=== PATIENT | male | born 1965 | race Caucasian/White ===

== ENCOUNTER 2020-05-13 03:40 | Emergency (ER) | payer OTHER, SELFPAY ==
--- NOTE | ~2020-05-13 | CT_ITS ---
EXAMINATION: CT abdomen pelvis wo con DATE: 05/13/2020 04:28 INDICATION: Right flank pain TECHNIQUE: Computed tomography (CT) of the abdomen and pelvis was performed without intravenous contr ast. Automated exposure control and iterative reconstruction technique were employed. Exam dose: 921 .68 mGy-cm total exam DLP. COMPARISON: 12/30/2010 CT renal scan FINDINGS: The lung bases are clear. Normal heart size. No pericardial or pleural effusion. The liver, gallbladder, bile ducts, spleen, pancreas, pancreatic duct and adrenal glands are unremark able. Bilateral nonobstructive nephrolithiasis. No left ureteral calculus or left hydroureteronephrosis. 6 mm proximal right ureteral calculus with associated mild 2 moderate right hydroureteronephrosis and perinephric and periureteral stranding. Prostate enlargement. Mild diffuse bladder wall thickening. Bilateral fat-containing inguinal hernias. Normal caliber of the abdominal aorta. Retroaortic left renal vein. No intraperitoneal or retroperito mukesh or pelvic mass lesion or adenopathy or ascites. Normal appendix. No bowel obstruction, bowel wall thickening, pneumatosis or intraperitoneal free air. Severe degenerative disease at L5-S1. Moderately severe degenerative disc disease at L4-5. Limbus vertebra at L2. Diffuse idiopathic skeletal hyperostosis of the thoracic spine. IMPRESSION: 6 mm proximal right ureteral obstructing calculus with mild to moderate right proximal h ydroureteronephrosis Bilateral nonobstructive nephrolithiasis Prostate enlargement Bilateral fat-containing inguinal hernias Degenerative changes of the thoracic and lumbar spine Reviewed, dictated and finalized at [facility]. Reviewed, dictated and finalized at [facility]. IMPRESSION: 6 mm proximal right ureteral obstructing calculus with mild to mod erate right proximal hydroureteronephrosis Bilateral nonobstructive nephrolithiasis Prostate enlargement Bilateral fat-containing inguinal hernias Degenerative changes of the thoracic and lumbar spine
--- NOTE | 2020-05-13 03:43 | ED.ABDPAIN ---
HPI - Abdominal Pain General Chief Complaint: Abdominal Pain Stated Complaint: kidney stone? Time Seen by Provider: 05/13/20 03:43 History of Present Illness HPI narrative: Right flank pain radiating to the RLQ since about 2300 last night. Severe. Associated with nausea. Feels like jaswinder he has passed a kidney stone in the past. He tried drinking water without any change. No fever, chills, vomiting, diarrhea. Related Data Home Medications Medication Instructions Recorded Confirmed No Home Medications 01/31/20 01/31/20 Allergies Allergy/AdvReac Type Severity Reaction Status Date / Time No Known Allergies Allergy Verified 05/13/20 03:48 Review of Systems Review of Systems: All systems reviewed & are unremarkable except as noted in HPI and below Constitutional: Constitutional: Denies chills and Denies fever(s) Cardiovascular: Cardiovascular: Denies chest pain Respiratory: Respiratory: Denies dyspnea Gastrointestinal: Gastrointestinal: Reports abdominal pain, Denies constipation, Denies diarrhea, Reports nausea and Denies vomiting Genitourinary: Genitourinary: Denies hematuria, Denies dysuria and Denies urinary frequency Neurologic: Reports system reviewed and no additional complaints, except as documented [facility] Past Medical History Medical History (Updated 05/13/20 @ 05:29 by Tyshawn Reyes MD) BMI greater than 30 Establishing care with new doctor, encounter for Kidney stone Surgical History Surgical History History of ankle surgery Hx of hernia repair Family History Family History Other Heart disease Hypertension Social History Social History Smoking status: Never smoker Alcohol intake: never Exam Const: General: healthy appearing and alert Orientation/consciousness: patient oriented x3 Other: Mild distress HENMT: Head: normal to inspection Neck: Neck: normal visual inspection Resp: Effort & Inspection: normal respiratory effort Auscultation: clear to auscultation bilaterally Cardio: Rate: regular rate Rhythm: regular rhythm GI: Inspection: non-distended GI Palp: Yes Soft to palpation, No Tenderness to palpation present (GI) and No Guarding due to palpation present (GI) : General: Yes no CVA tenderness Skin: General skin exam: normal color Neuro: General: patient oriented x3, moves all extremities, no focal motor deficits and CN's II-XI intact bilaterally Speech: normal speech Extrem: General: normal to inspection and no edema Course Vital Signs Vital signs: Vital Signs Temperature 36.2 C L 05/13/20 03:44 Pulse Rate 73 05/13/20 03:44 Respiratory Rate 20 05/13/20 03:44 Blood Pressure 149/95 H 05/13/20 03:44 Pulse Oximetry 100 05/13/20 03:44 Temperature 36.2 C L 05/13/20 03:44 Pulse Rate 73 05/13/20 03:44 Respiratory Rate 20 05/13/20 03:44 Blood Pressure 149/95 H 05/13/20 03:44 Pulse Oximetry 100 05/13/20 03:44 MDM - Abdominal Pain MDM Narrative Medical decision making narrative: 6 mm proximal stone on CT. On reevaluation his pain has nearly resolved and he says that he is ceratin that the stone has passed and he is ready for discharge. Differential Diagnosis Differential diagnosis: Likely acute appendicitis, calculus of kidney, constipation, diverticulitis, pancreatitis and small bowel obstruction Medical Records Attestation: I reviewed the patient's medical records. Lab Data Attestation: I reviewed the patient's lab results. Result diagrams: 05/13/20 03:55 05/13/20 03:55 Labs: Lab Results 05/13/20 05/13/20 05/13/20 Range/Units 03:55 03:55 04:50 WBC 8.6 (4.5-10.0) K/mm3 RBC 4.85 (4.6-6.20) M/mm3 Hgb 15.4 (14.0-18.0) g/dL Hct 44.1 (42.0-52.0) % MCV 90.9 (80-100) fl MCH 31.8 (26-34) pg
[2020-05-13 03:44] VITALS: BP 149/95; PULSE 73; RESP 20; TEMP 36.2; O2SAT 100
[2020-05-13] MEDS: SODIUM CHLORIDE 0.9% IV 1,000 ML 999 ML IV CONT ×2 (03:51→04:49)
[2020-05-13] MEDS: MORPHINE SULFATE (*CRX) 4 MG/ML INJ IV PUSH (03:52)
[2020-05-13] MEDS: ONDANSETRON INJ 4 MG/2 ML VIAL IV PUSH (03:52)
[2020-05-13 04:01] LABS: Basophils Percent Auto 0.3 % (0.2-1.2); Eosinophils Absolute Auto 0.1 K/mm3 (0-0.3); Eosinophils Percent Auto 0.9 % (0-4.4); Hematocrit 44.1 % (42.0-52.0); Hemoglobin 15.4 g/dL (14.0-18.0); Immature Granulocyte Absolute 0.03 K/mm3 (0.00-0.031); Immature Granulocyte Percent A 0.3 % (0-0.5); Lymphocytes Absolute Auto 1.67 K/mm3 (0.9-3.2); Lymphocytes Percent Auto 19.4 % (18.3-44.2); Mean Corpuscular HGB Conc 34.9 g/dl (32-36); Mean Corpuscular Hemoglobin 31.8 pg (26-34); Mean Corpuscular Volume 90.9 fl (80-100); Mean Platelet Volume 9.3 fl (7.4-10.4); Monocytes Absolute Auto 0.9 K/mm3 (0.1-0.6); Neutrophils Absolute Auto 5.9 K/mm3 (1.3-6.7); Neutrophils Percent Auto 69.1 % (45.5-73.1); Platelet Count Result 244 k/mm3 (150-375); Red Blood Count 4.85 M/mm3 (4.6-6.20); Red Cell Distribution Width 12.3 % (11.5-14.5); White Blood Count 8.6 K/mm3 (4.5-10.0)
[2020-05-13 04:13] LABS: Alanine Aminotransferase 22 U/L (4-50); Albumin Level 4.5 g/dL (3.5-5.1); Alkaline Phosphatase 63 U/L (38-126); Anion Gap 8 mmol/L (8-16); Aspartate Amino Transferase 30 U/L (17-59); Bilirubin,Total 0.5 mg/dL (0.2-1.3); Blood Urea Nitrogen 22 mg/dL (9-20); Calcium 9.4 mg/dL (8.4-10.2); Carbon Dioxide 28 mmol/L (22-30); Chloride 102 mmol/L (98-107); Estimated CRCL calculation 62 ml/min; Estimated Glomerular Filt Rate 57; Glucose 131 mg/dL (75-110); Lipase 61 U/L (23-300); Potassium 3.7 mmol/L (3.4-5.0); Sodium 138 mmol/L (137-145)
[2020-05-13] MEDS: TAMSULOSIN HCL 0.4 MG CAPSULE PO (04:33)
[2020-05-13] MEDS: KETOROLAC 30 MG/ML VIAL (*BKC) IV PUSH (04:49)
[2020-05-13] MEDS: MORPHINE SULFATE (*CRX) 2 MG/ML INJ IV PUSH (04:49)
[2020-05-13 05:29] LABS: Add Urine Microscopic? YES; Appearance Urine Clear (Clear); Bilirubin Urine Negative (Negative); Blood Urine 1+ (Negative); Color Urine Yellow (Yellow); Glucose Urine UA Negative (Negative); Ketones Urine Negative (Negative); Leukocyte Esterase Ur Negative LEU/UL (Negative); Mucus Urine Rare /lpf; Nitrate Urine Negative (Negative); Protein Urine 1+ mg/dL (Negative); Specific Grav Ur 1.017 (1.001-1.035); Urobilinogen Urine Negative mg/dL (<2.0); WBC Urine 0-3 /hpf
[2020-05-13 05:36] VITALS: BP 121/68; PULSE 80; RESP 16; O2SAT 98
== END 2020-05-13 05:38 | disposition home or self-care (01) ==
PROVIDERS: Emergency Provider Emergency Medicine; PCP Family Medicine
DX: N13.2 Hydronephrosis with renal and ureteral calculous obstruction (principal); Z87.442 Personal history of urinary calculi; N40.0 Benign prostatic hyperplasia without lower urinary tract symptoms; K40.90 Unilateral inguinal hernia, without obstruction or gangrene, not specified as recurrent
CPT/HCPCS: 36415; 74176; 80053; 81001; 83690; 85025; 96361; 96374; 96375; 96376; 99284; A9270; J1885; J2270; J2405; J7030

== ENCOUNTER → 2020-05-24 15:58 | Outpatient (CLI) | payer OTHER, SELFPAY ==
--- NOTE | ~2020-05-24 | CT_ITS ---
EXAMINATION: CT abdomen pelvis wo con DATE: 05/24/2020 16:20 INDICATION: Right ureteral stone. TECHNIQUE: Computed tomography (CT) of the abdomen and pelvis was performed without intravenous contr ast. Automated exposure control and iterative reconstruction technique were employed. The dose-length product was 777.13 mGy-cm. COMPARISON: CT abdomen and pelvis 05/13/2020 FINDINGS: The visualized portions of the lung bases demonstrate minimal atelectasis on the right. No pleural effusion. The heart size is normal. No pericardial effusion. The liver, gallbladder, spleen, pancreas, and adrenal glands are normal. There are 5 stones in right kidney measuring up to 6 mm. The re are 4 stones in left kidney measuring up to 5 mm. The prostate is moderately enlarged. There are b ilateral inguinal hernias containing fat. There are no dilated loops of bowel. The appendix is normal . There are no pathologically enlarged lymph nodes. There is no free intraperitoneal fluid. There is moderate thoracic spondylosis and severe lumbar spondylosis. IMPRESSION: 1. Bilateral nonobstructing kidney stones. Reviewed, dictated and finalized at [facility].
--- NOTE | ~2020-05-24 | XR_ITS ---
EXAMINATION: XR abdomen/kub 1V DATE: 05/24/2020 16:20 INDICATION: Right ureteral stone. TECHNIQUE: A supine view of the abdomen on 3 radiographs was obtained. COMPARISON: CT abdomen and pelvis 05/24/2020 FINDINGS: There are no dilated loops of bowel. There are stones in the kidneys bilaterally measuring up to 4 mm. There are phleboliths in the pelvis. IMPRESSION: 1. Bilateral kidney stones. Reviewed, dictated and finalized at [facility]. IMPRESSION: 1. Bilateral kidney stones.
== END ==
PROVIDERS: PCP Family Medicine; Visit Provider Urology
DX: N20.0 Calculus of kidney (principal); K40.90 Unilateral inguinal hernia, without obstruction or gangrene, not specified as recurrent; M47.814 Spondylosis without myelopathy or radiculopathy, thoracic region
CPT/HCPCS: 74018; 74176